=== PATIENT | male | born 2000 | race Caucasian/White ===

== ENCOUNTER 2024-05-04 08:50 | Emergency (ER) | payer MEDICAID ==
[~2024-05-04] VITALS: Ht 172.7 cm; Wt 91.0 kg
[2024-05-04 08:52] VITALS: O2SAT 100
[2024-05-04 09:00] VITALS: BP 130/81; PULSE 110; RESP 18; TEMP 98.1; O2SAT 97
[2024-05-04 10:39] LABS: BASOPHILS % 0.4 % (0.0-2.0); EOSINOPHILS % 1.2 % (0.0-5.0); HEMATOCRIT. 44.7 % (42.0-52.0); LYMPHOCYTES % 22.2 % (20.0-50.0); MEAN CORPUSCULAR HGB CONC 33.6 g/dL (31.0-37.0); MEAN CORPUSCULAR VOLUME 89.3 fL (80.0-94.0); MEAN PLATELET VOLUME 7.2 fl (7.4-10.4); MONOCYTES % 9.8 % (2.0-8.0); NEUTROPHILS % 66.4 % (40.0-76.0); PLATELET 497 x1000/uL (130-400); RED BLOOD CELL COUNT 5.01 mill/uL (4.7-6.1); RED CELL DISTRIBUTION WIDTH 14.2 % (11.6-14.6)
[2024-05-04 10:49] LABS: CHLORIDE 103 mEq/L (98-107); POTASSIUM 3.9 mEq/L (3.5-5.1); SODIUM 136 mEq/L (136-145)
[2024-05-04 10:50] LABS: CARBON DIOXIDE 22 mEq/L (21-32)
[2024-05-04 10:51] LABS: CALCIUM 9.8 mg/dL (8.7-10.4)
[2024-05-04 10:55] LABS: CREATININE 0.9 mg/dL (0.6-1.3); GLUCOSE 82 mg/dL (70-105); UREA NITROGEN BLOOD 17 mg/dL (9-23)
[2024-05-04] MEDS ORDERED: CLINDAMYCIN 600 MG in DEXTROSE 5% WATER 50 ML IV ONE (11:45)
[2024-05-04] MEDS ORDERED: SODIUM CHLORIDE 0.9% 1,000 ML IV ONE (11:45)
[2024-05-04] MEDS ORDERED: CLINDAMYCIN 600MG PREMIX 50 ML IV SCH (12:00)
== END 2024-05-04 17:30 | disposition left against medical advice (07) ==
LOC: ER 08:50 → EDBEDREQTM 14:08 → EDBEDREQ 14:08 → ER 17:30
DX: A41.9 Sepsis, unspecified organism (principal); F17.210 Nicotine dependence, cigarettes, uncomplicated; I10 Essential (primary) hypertension; Z98.890 Other specified postprocedural states
CPT/HCPCS: 99284; 80048; 85025; 36415; 93005; J3490; J7060; J7030